=== PATIENT | female | born 1970 | race Caucasian/White ===

== ENCOUNTER 2020-10-20 16:02 | Emergency (ER) | payer OTHER, SELFPAY ==
--- NOTE | ~2020-10-20 | CT_ITS ---
EXAMINATION: CT brain wo con DATE: 10/20/2020 16:09 INDICATION: Cerebrovascular accident. TECHNIQUE: Computed tomography (CT) of the head was performed without intravenous contrast. The mA wa s adjusted according to patient size. Iterative reconstruction technique was employed. The dose-lengt h product was 605.33 mGy-cm. COMPARISON: Head CT 04/13/2011 FINDINGS: There are scattered areas of low attenuation in the cerebral white matter. There is no intr acranial hemorrhage, acute infarction, or abnormal intracranial mass lesion. The ventricles are kelsy l in size. The orbits are normal. There is mucosal thickening in the sphenoid and posterior right eth moid sinuses. The mastoid air cells are normal. IMPRESSION: 1. Worsened moderate nonspecific cerebral white matter disease, which likely represents chronic small vessel ischemic disease. I called this result to Dr. Shi. Reviewed, dictated and finalized at location A. ERER IMPRESSION: 1. Worsened moderate nonspecific cerebral white matter disease, which likely re presents chronic small vessel ischemic disease. I called this result to Dr. Sola shields.
--- NOTE | ~2020-10-20 | CT_ITS ---
CTA brain carotid DATE: 10/20/2020 18:46 INDICATION: Right-sided weakness TECHNIQUE: Examination was performed with 100 cc Omnipaque 350 intravenous contrast material. Sagitta l and coronal and three-dimensional reconstructions were performed. Exam dose: 1009.63 mGy-cm total exam DLP. COMPARISON: 10/20/2020 CT brain FINDINGS: The aortic arch, great vessels and the cervical and intracranial carotid and vertebral basi lar artery circulations and [place] are intact without evidence of significant stricture, ob struction or dissection. No cerebral aneurysm is detected. Severe soft tissue thickening of the right sphenoid sinus and some posterior right ethmoid sinus opac ification are again noted. Up to 1.2 cm right thyroid centimeters soft tissue lesion. Consider thyroid ultrasound for further ev aluation as clinically appropriate. Otherwise no cervical soft tissue mass lesion or lymphadenopathy. The parotid and submandibular gland s are unremarkable. No superior mediastinal mass lesion or lymphadenopathy. No evidence of aneurysm of the thoracic aorti c arch. Incidental finding of emphysema. IMPRESSION: No significant stricture, occlusion or dissection or aneurysm of the aortic arch, great v essels, carotid or vertebral arteries or [place] Reviewed, dictated and finalized at [facility]. Reviewed, dictated and finalized at location A. TURNER IMPRESSION: No significant stricture, occlusion or dissection or aneurysm of th e aortic arch, great vessels, carotid or vertebral arteries or [place]
--- NOTE | ~2020-10-20 | XR_ITS ---
EXAMINATION: XR chest 1V portable DATE: 10/20/2020 16:43 INDICATION: Cerebrovascular accident. TECHNIQUE: A single frontal view of the chest was obtained. COMPARISON: Chest 2 views 03/30/2015 FINDINGS: The chest demonstrates clear lungs without pneumonia, pleural effusion, or pneumothorax. Th e heart size is normal. IMPRESSION: 1. No acute cardiopulmonary disease. Reviewed, dictated and finalized at location A. ER MIXER HELPER
--- NOTE | 2020-10-20 16:04 | ECG_ITS ---
Measurements Intervals [place] Rate: 81 P: 82 PA: 166 QRS: 78 QRSD: 93 T: 51 QT: 393 QTc: 457 Interpretive Statements SINUS RHYTHM POSSIBLE LEFT ATRIAL ENLARGEMENT BASELINE ARTIFACT- I, II, III, AVR, AVL, AVF, V1-V6 BORDERLINE ECG Electronically Signed On 10-20-2020 17:13:41 [employer]LL[employer]CTOR OPERATOR by Chuy Gong D.O.
[2020-10-20 16:12] VITALS: BP 155/121; PULSE 87; RESP 29; TEMP 36.3; O2SAT 98
[2020-10-20 16:19] VITALS: BP 151/106; PULSE 83; RESP 19
[2020-10-20 16:20] LABS: Glucose Point of Care 109 (65-105)
[2020-10-20 16:33] VITALS: BP 126/85; PULSE 77; RESP 16; O2SAT 97
[2020-10-20 16:34] LABS: Basophils Absolute Auto 0.1 K/mm3 (0.0-0.1); Basophils Percent Auto 0.6 % (0.2-1.2); Eosinophils Percent Auto 0.4 % (0-4.4); Hematocrit 47.8 % (37.0-47.0); Hemoglobin 16.6 g/dL (12.0-15.0); Immature Granulocyte Absolute 0.03 K/mm3 (0.00-0.031); Immature Granulocyte Percent A 0.3 % (0-0.5); Lymphocytes Absolute Auto 2.22 K/mm3 (0.9-3.2); Lymphocytes Percent Auto 20.1 % (18.3-44.2); Mean Corpuscular HGB Conc 34.7 g/dl (32-36); Mean Corpuscular Volume 89.3 fl (80-100); Monocytes Absolute Auto 0.7 K/mm3 (0.1-0.6); Monocytes Percent Auto 6.2 % (2.6-8.5); Neutrophils Percent Auto 72.4 % (45.5-73.1); Platelet Count Result 275 k/mm3 (150-375); Red Blood Count 5.35 M/mm3 (4.2-5.4); Red Cell Distribution Width 13.3 % (11.5-14.5); White Blood Count 11.1 K/mm3 (4.5-10.0)
--- NOTE | 2020-10-20 16:34 | ED.GENADULT ---
HPI - General Adult General Chief complaint: Suspected CVA Stated complaint: cva Time Seen by Provider: 10/20/20 16:13 Source: patient Mode of arrival: EMS History of Present Illness HPI narrative: Patient is a 50 y/o female complaining of blurred vision, difficulty talking and right sided weakness since about 3:00 PM. She states that she was sitting at a computer at work when her symptoms started. There is no known alleviating or exacerbating factor. However, her symptoms have improved since onset. She denies any headache or passing out. Related Data Home Medications Medication Instructions Recorded Confirmed No Home Medications 10/01/19 10/01/19 Allergies Allergy/AdvReac Type Severity Reaction Status Date / Time No Known Allergies Allergy Verified 10/10/19 10:03 Review of Systems Constitutional: Constitutional: Denies chills, Denies fever(s), Denies headache(s) and Denies weakness Eyes: Eyes: Reports blurry vision ENT: Denies headache(s) and Denies neck pain Cardiovascular: Cardiovascular: Denies chest pain and Denies dyspnea Respiratory: Respiratory: Denies cough and Denies dyspnea Gastrointestinal: Gastrointestinal: Denies abdominal pain, Denies diarrhea, Denies nausea and Denies vomiting Genitourinary: Genitourinary: Denies hematuria and Denies dysuria Musculoskeletal: Musculoskeletal: Denies back pain and Denies neck pain Neurologic: Reports Abnormal speech present, Denies headache(s), Reports focal weakness, Reports numbness and Reports weakness PMFSH Past Medical History Medical History Anorexia Anxiety Depression Fibroids GERD (gastroesophageal reflux disease) H/O: HTN (hypertension) REYNOLDS (headache) Hx of seizure disorder MVP (mitral valve prolapse) PTSD (post-traumatic stress disorder) Right rotator cuff tear Surgical History Surgical History History of primary section Hx of rotator cuff surgery rt Family History Family History Other Cerebrovascular accident Diabetes mellitus Family history of arthritis Family history of cardiovascular disease Family history of mental disorder Hypertension Social History Social History Smoking packs per day: 0.5 Smoking cigarettes per day: 10.0 Smoking status: Current every day smoker Tobacco type: cigarettes Second hand tobacco smoke exposure: Yes Alcohol intake: current Gender identity (if verbalized by the patient): Female Exam Const: General: no acute distress and well developed Orientation/consciousness: oriented to person, oriented to place, oriented to time and patient oriented x3 HENMT: Head: normocephalic Ears: external ears normal General nose exam: Normal external nose present Eyes: General: appearance normal, both eyes and all related structures Conjunctivae: conjunctivae normal Neck: Neck: normal visual inspection and full ROM Chest: Chest palpation & inspection: normal inspection of the chest and no tenderness Resp: Effort & Inspection: normal respiratory effort Auscultation: clear to auscultation bilaterally Cardio: Rate: regular rate Rhythm: regular rhythm GI: GI Palp: No abdominal tenderness and Yes Soft to palpation Skin: General skin exam: normal color and turgor normal Neuro: General: oriented to person, oriented to place, oriented to time and patient oriented x3 Cognition (Neuro): normal cognition Motor exam (neuro): Other motor observations present (decreased strength on right side) Extrem: General: normal to inspection, full ROM and no pedal edema Psych: Appearance: grossly normal Mental Status: mental status grossly normal Affect: normal affect Course Reevaluation(s) Reevaluation #1: Discussed with patient about tPA for presumed stroke. Informed patient about th
[2020-10-20 16:43] LABS: INR 0.9; Prothrombin Time 13.2 Seconds (11.1-14.7)
[2020-10-20 16:44] LABS: Partial Thromboplastin Time 38.3 SECONDS (22.3-36.8)
--- NOTE | 2020-10-20 16:51 | PC.NURSE ---
TPA bolus of 6.75 in now baed on patients weight of 75 kg and verbal confirmation by Pharmacy
--- NOTE | 2020-10-20 16:54 | PC.NURSE ---
Infusion of 60.75mg started per IV pump based on verbal confirmation by Pharmacy; 32.5 mg wasted prior to starting infusion.
[2020-10-20 17:16] VITALS: BP 147/93; PULSE 80; RESP 15; O2SAT 98
--- NOTE | 2020-10-20 17:40 | PC.NURSE ---
Patient's speech pattern is more clear and patient is able to find words without difficulty at this time. patient states that her legs are still weak but that she feels better than when she arrived.
--- NOTE | 2020-10-20 17:46 | PC.NURSE ---
[facility] transfer center called, patient will be transfered to [facility] once bed is available.
[2020-10-20 18:04] LABS: Anion Gap 6 mmol/L (8-16); Blood Urea Nitrogen 9 mg/dL (7-17); Calcium 9.2 mg/dL (8.4-10.2); Carbon Dioxide 28 mmol/L (22-30); Chloride 106 mmol/L (98-107); Estimated CRCL calculation 70 ml/min; Estimated Glomerular Filt Rate > 60; Glucose 96 mg/dL (65-105); Potassium 3.4 mmol/L (3.4-5.0); Sodium 140 mmol/L (137-145)
[2020-10-20 18:07] LABS: Troponin I < 0.012 ng/mL (0.000-0.034)
[2020-10-20 18:56] VITALS: BP 154/90; PULSE 80; RESP 23; O2SAT 97
--- NOTE | 2020-10-20 18:58 | PC.NURSE ---
patient received bed at [facility] (ICU bed 697) [phone]
[2020-10-20 19:01] VITALS: BP 154/84; PULSE 75; RESP 16; O2SAT 99
--- NOTE | 2020-10-20 19:04 | PC.NURSE ---
Levophed started at 4mcg/min per EDP Verbal order
== END 2020-10-20 19:01 | disposition short-term general hospital (02) ==
PROVIDERS: Emergency Medicine; Emergency Provider Emergency Medicine; PCP Family Medicine
DX: I63.9 Cerebral infarction, unspecified (principal); R29.703 NIHSS score 3; K21.9 Gastro-esophageal reflux disease without esophagitis; F17.210 Nicotine dependence, cigarettes, uncomplicated; I10 Essential (primary) hypertension; R94.31 Abnormal electrocardiogram [ECG] [EKG]
CPT/HCPCS: 36415; 37195; 70450; 70496; 70498; 71045; 80048; 81025; 82948; 84484; 85025; 85610; 85730; 93005; 99285; J2997; Q9967